=== PATIENT | male | born 1960 | race Hispanic/Latino ===

== ENCOUNTER 2018-11-23 19:47 | Inpatient (IN) | payer SELFPAY ==
[~2018-11-23] VITALS: Ht 165.1 cm; Wt 88.6 kg
[2018-11-23 20:28] LABS: BASOPHILS % (AUTO) 0.6 % (0.0-5.0); EOSINOPHILS % (AUTO) 0.3 % (0.0-8.0); HEMATOCRIT 38.7 % (42-54); LYMPHOCYTES % (AUTO) 11.8 % (21.0-51.0); MEAN CORPUSCULAR HEMOGLOBIN 30.4 pg (27.0-33.0); MEAN CORPUSCULAR HGB CONC 34.8 g/dL (32.0-36.0); MEAN CORPUSCULAR VOLUME 87.4 fL (79-99); NEUTROPHILS % (AUTO) 80.3 % (40.0-77.0); PLATELET COUNT (AUTO) 147 K/uL (130-400); RED BLOOD CELL COUNT(AUTO) 4.43 MIL/uL (4.50-6.20); RED CELL DISTRIBUTION WIDTH 13.3 % (11.0-15.5); WHITE BLOOD COUNT (AUTO) 8.5 K/uL (4.8-10.8)
[2018-11-23 20:39] LABS: CREATININE 1.3 mg/dL (0.5-1.5); POTASSIUM 4.5 mmol/L (3.5-5.1)
[2018-11-23 20:43] LABS: ALBUMIN 3.9 g/dL (3.5-5.0); BILIRUBIN,TOTAL 0.8 mg/dL (0.2-1.0); TOTAL PROTEIN, SERUM 8.1 g/dL (6.0-8.3)
[2018-11-23] MEDS ORDERED: BENZONATATE 100 MG CAPSULE PO ONE (21:09)
[2018-11-23] MEDS ORDERED: LIDOCAINE HCL 2% 20ML ONE (21:13)
[2018-11-23] MEDS ORDERED: LIDOCAINE 2%-EPI 1:200,000 20 ML VIAL IJ ONE (21:38)
[2018-11-23] MEDS ORDERED: LORAZEPAM 2 MG/ML 1 ML VIAL ONE (21:43)
[2018-11-23] MEDS ORDERED: ACETAMINOPHEN 325 MG TAB PO PRN (22:45)
[2018-11-23] MEDS ORDERED: MORPHINE SULFATE 2 MG/ML 1ML SYG IV PRN (22:45)
[2018-11-23] MEDS ORDERED: CHLORDIAZEPOXIDE HCL 25 MG CAP PO PRN ×2 (22:45)
[2018-11-23] MEDS ORDERED: LORAZEPAM 2 MG/ML 1 ML VIAL IVP PRN ×2 (22:45)
[2018-11-23] MEDS ORDERED: PHARMACY COMMUNICATION MISC PRN (22:45)
[2018-11-23] MEDS ORDERED: ONDANSETRON HCL 4 MG/2 ML VIAL IV PRN (22:45)
[2018-11-23] MEDS ORDERED: CLINDAMYCIN 600 MG/D5% WATER 50 ML IV ONE (23:07)
[2018-11-23] MEDS ORDERED: INSULIN HUMULIN R 100 UNIT/ML 3ML ONE (23:09)
[2018-11-24] MEDS ORDERED: GUAIFENESIN-CODEINE 5 ML SYRUP ONE (00:57)
[2018-11-24] MEDS ORDERED: GUAIFENESIN-CODEINE 5 ML SYRUP PO PRN (01:00)
[2018-11-24] MEDS: IPRATROPIUM/ALBUTEROL SULFATE 3 ML SOLUTION IH SCH ×6 (01:08→22:37)
[2018-11-24] MEDS ORDERED: THIAMINE HCL 100 MG/ML 2ML VIAL ONE (02:13)
[2018-11-24] MEDS ORDERED: M.V.I. IV [ADULT] 10 ML VIAL IV ONE (02:14)
[2018-11-24] MEDS ORDERED: FOLIC ACID 5 MG/ML 10 ML VIAL ONE (02:15)
[2018-11-24] MEDS ORDERED: SODIUM CHLORIDE 0.9% 1000ML 1,000 ML IV ONE (02:15)
[2018-11-24] MEDS ORDERED: ACETAMINOPHEN 325 MG TAB ONE (02:18)
[2018-11-24 03:22] VITALS: BP 127/80
[2018-11-24] MEDS ORDERED: CLINDAMYCIN 600 MG/D5% WATER 50 ML IV SCH (06:00)
[2018-11-24] MEDS: THIAMINE HCL 100 MG, FOLIC ACID 1 MG, M.V.I. IV [ADULT] 10 ML in SODIUM CHLORIDE 0.9% 1... IV SCH ×2 (06:00→21:19)
[2018-11-24] MEDS ORDERED: INSULIN HUMULIN R 100 UNIT/ML 3ML SQ SCH (07:30)
--- NOTE | 2018-11-24 07:32 | NUR ---
DR JAY ROUNDED ON PATIENT ORDERS FOR CBC, CMP, AMP AND LIP IN AM START PATIENT ON CLEAR LIQ
[2018-11-24 08:00] VITALS: BP 113/61
[2018-11-24] MEDS ORDERED: DOXYCYCLINE 100MG+NS 250ML 250 ML IV SCH (08:00)
[2018-11-24 08:27] LABS: HEMOGLOBIN A1C 11.6 % (4.0-6.0)
[2018-11-24 08:56] LABS: INR 1.07 (0.85-1.15); PARTIAL THROMBOPLASTIN TIME 31.6 SEC (26.3-35.5); PROTHROMBIN TIME 11.2 SEC (9.6-11.6)
[2018-11-24] MEDS ORDERED: VANCOMYCIN 1GM+NS 250ML 250 ML IV SCH (09:00)
[2018-11-24] MEDS ORDERED: VANCOMYCIN PROTOCOL PER PHARMACY IV PRN (09:00)
[2018-11-24] MEDS: ENOXAPARIN SODIUM 40 MG/0.4 ML SYRINGE SQ SCH (09:45)
[2018-11-24] MEDS: FAMOTIDINE/PF 20 MG/2 ML VIAL IV SCH ×2 (09:45→21:42)
[2018-11-24] MEDS: BENZONATATE 100 MG CAPSULE PO SCH ×3 (09:46→21:35)
[2018-11-24] MEDS: VANCOMYCIN 1GM+NS 250ML 250 ML IV SCH ×2 (10:00→21:42)
[2018-11-24] MEDS ORDERED: VANCOMYCIN 2 GM in SODIUM CHLORIDE 0.9% 500ML 500 ML IV ONE (10:00)
[2018-11-24 11:00] VITALS: BP 129/67
[2018-11-24] MEDS: INSULIN LISPRO 100 UNIT/ML 3ML SQ SCH ×5 (12:50→21:39)
[2018-11-24] MEDS: ZOSYN 3.375GM+NS 50ML 50 ML IV SCH ×2 (12:53→21:35)
--- NOTE | 2018-11-24 14:47 | NUR ---
SUBSTANCE ABUSE Sw met with pt's , pt was sleeping the entire visit. Per , pt has a long of substance abuse and states he recently fell off the wagon. states she believes it was related to stress of caring for his mother who has Alzheimer's disease. reports she is a pt at [facility] and she plans to take pt to [facility] for an evaluation for possible help. reports that pt's grandson witnessed pt high and was very emotional and upset by it. This had a big impact on pt to see how it affected his grandson and "swears" he is gonna quit for good. hopefule that this is case. Sw provided with resources for substance abuse to review and use as needed
[2018-11-24 16:00] VITALS: BP 130/56
--- NOTE | 2018-11-24 17:57 | NUR ---
cm note pt resides athome with spouse, independent with adls and self care. no dme. no services. dc plan is back to same home setting at time of dc. low income clinics info provided. [facility] to screen for possible assist. Addendum: 11/24/18 at 1759 by RHONA WOLFE CM Amended: Links added.
[2018-11-24 20:00] VITALS: BP 97/50
[2018-11-24] MEDS: INSULIN GLARGINE 100 UNITS/ML 10 ML VIAL SQ SCH (21:37)
[2018-11-25] VITALS: BP 140/64
[2018-11-25] MEDS: IPRATROPIUM/ALBUTEROL SULFATE 3 ML SOLUTION IH SCH ×2 (02:08→06:21)
[2018-11-25 04:00] VITALS: BP 112/56
[2018-11-25 04:29] LABS: BASOPHILS % (AUTO) 0.9 % (0.0-5.0); EOSINOPHILS % (AUTO) 1.9 % (0.0-8.0); HEMATOCRIT 34.1 % (42-54); LYMPHOCYTES % (AUTO) 26.4 % (21.0-51.0); MEAN CORPUSCULAR HEMOGLOBIN 30.5 pg (27.0-33.0); MEAN CORPUSCULAR VOLUME 87.1 fL (79-99); MONOCYTES % (AUTO) 10.1 % (3.0-13.0); NEUTROPHILS % (AUTO) 60.7 % (40.0-77.0); PLATELET COUNT (AUTO) 98 K/uL (130-400); RED BLOOD CELL COUNT(AUTO) 3.91 MIL/uL (4.50-6.20); WHITE BLOOD COUNT (AUTO) 3.8 K/uL (4.8-10.8)
[2018-11-25 04:30] LABS: HEMOGLOBIN A1C 11.6 % (4.0-6.0)
[2018-11-25 04:35] LABS: CREATININE 1.1 mg/dL (0.5-1.5); CRP QUANTITATIVE 17.3 mg/L (0.00-9.0); POTASSIUM 3.6 mmol/L (3.5-5.1)
[2018-11-25] MEDS: ZOSYN 3.375GM+NS 50ML 50 ML IV SCH ×3 (05:00→21:48)
[2018-11-25 05:51] LABS: ERYTHROCYTE SEDIMENTATION RATE 42 MM/HR (0-20)
[2018-11-25] MEDS: INSULIN LISPRO 100 UNIT/ML 3ML SQ SCH ×7 (07:49→21:50)
[2018-11-25 08:31] VITALS: BP 123/63
[2018-11-25] MEDS: ENOXAPARIN SODIUM 40 MG/0.4 ML SYRINGE SQ SCH (09:00)
[2018-11-25] MEDS ORDERED: IPRATROPIUM/ALBUTEROL SULFATE 3 ML SOLUTION IH PRN ×2 (09:30)
[2018-11-25] MEDS: BENZONATATE 100 MG CAPSULE PO SCH ×3 (10:54→21:48)
[2018-11-25] MEDS: FAMOTIDINE/PF 20 MG/2 ML VIAL IV SCH ×2 (10:54→21:49)
[2018-11-25] MEDS: VANCOMYCIN 1GM+NS 250ML 250 ML IV SCH ×2 (11:00→21:48)
[2018-11-25 11:53] VITALS: BP 118/71
[2018-11-25 13:22] LABS: AMPHET/METH SCREEN,URINE NEGATIVE (NEGATIVE); BARBITURATE SCREEN, URINE NEGATIVE (NEGATIVE); BENZODIAZEPINES SCREEN,URINE NEGATIVE (NEGATIVE); CANNABINOID SCREEN,URINE NEGATIVE (NEGATIVE); COCAINE SCREEN,URINE POSITIVE (NEGATIVE); OPIATE SCREEN,URINE NEGATIVE (NEGATIVE); PHENCYCLIDINE SCREEN,URINE NEGATIVE (NEGATIVE)
[2018-11-25] MEDS: THIAMINE HCL 100 MG, FOLIC ACID 1 MG, M.V.I. IV [ADULT] 10 ML in SODIUM CHLORIDE 0.9% 1... IV SCH (15:52)
[2018-11-25 15:54] VITALS: BP 117/67
[2018-11-25 20:00] VITALS: BP 151/76
[2018-11-25] MEDS: INSULIN GLARGINE 100 UNITS/ML 10 ML VIAL SQ SCH (21:54)
[2018-11-26] VITALS: BP 147/80
[2018-11-26 04:00] VITALS: BP 128/74
[2018-11-26 04:46] LABS: HEMATOCRIT 33.1 % (42-54); MEAN CORPUSCULAR HEMOGLOBIN 30.1 pg (27.0-33.0); MEAN CORPUSCULAR VOLUME 85.9 fL (79-99); PLATELET COUNT (AUTO) 116 K/uL (130-400); RED BLOOD CELL COUNT(AUTO) 3.85 MIL/uL (4.50-6.20); RED CELL DISTRIBUTION WIDTH 13.1 % (11.0-15.5); WHITE BLOOD COUNT (AUTO) 4.1 K/uL (4.8-10.8)
[2018-11-26 04:57] LABS: CREATININE 0.9 mg/dL (0.5-1.5); POTASSIUM 3.8 mmol/L (3.5-5.1)
[2018-11-26] MEDS: ZOSYN 3.375GM+NS 50ML 50 ML IV SCH ×2 (06:14→13:25)
[2018-11-26] MEDS: INSULIN LISPRO 100 UNIT/ML 3ML SQ SCH ×7 (06:17→20:48)
[2018-11-26 08:00] VITALS: BP 123/77
[2018-11-26] MEDS: ENOXAPARIN SODIUM 40 MG/0.4 ML SYRINGE SQ SCH (09:00)
[2018-11-26] MEDS: BENZONATATE 100 MG CAPSULE PO SCH ×3 (10:00→20:12)
[2018-11-26] MEDS: FAMOTIDINE/PF 20 MG/2 ML VIAL IV SCH ×2 (10:00→20:11)
--- NOTE | 2018-11-26 10:02 | NUR ---
LOVENOX HELD, PLT. COUNT BELOW 100. VANCO. NOT YET GIVEN, WAITING ON TROUGH RESULTS.
[2018-11-26] MEDS: THIAMINE HCL 100 MG, FOLIC ACID 1 MG, M.V.I. IV [ADULT] 10 ML in SODIUM CHLORIDE 0.9% 1... IV SCH (10:43)
[2018-11-26 11:00] VITALS: BP 120/69
--- NOTE | 2018-11-26 11:00 | NUR ---
NEW IV START, 20G RT. HAND.
[2018-11-26] MEDS ORDERED: COMPOUND IV REFRIGERATED 1 EACH IVSOLN MISC PRN (11:45)
[2018-11-26] MEDS ORDERED: VANCOMYCIN 1.5 GM in SODIUM CHLORIDE 0.9% 250 ML IV SCH (12:00)
--- NOTE | 2018-11-26 13:00 | NUR ---
DRESSING TO LT UPPER ARM CHANGED. WAS SQUEEZING ON ABSCESS , STATES WANTED TO SEE IF HE STILL HAD PUS. INST. TO LEAVE IT ALONE, ALREADY OPEN AND WILL DRAIN ON ITS OWN
[2018-11-26 16:00] VITALS: BP 122/76
[2018-11-26] MEDS: CEPHALEXIN 500 MG CAPSULE PO SCH ×2 (17:26→23:24)
[2018-11-26 20:00] VITALS: BP 124/63
[2018-11-26] MEDS: INSULIN GLARGINE 100 UNITS/ML 10 ML VIAL SQ SCH (20:49)
[2018-11-27] VITALS: BP 141/78
[2018-11-27 04:06] VITALS: BP 120/64
[2018-11-27 04:59] LABS: HEMATOCRIT 32.9 % (42-54); MEAN CORPUSCULAR HEMOGLOBIN 30.2 pg (27.0-33.0); MEAN CORPUSCULAR HGB CONC 34.4 g/dL (32.0-36.0); MEAN CORPUSCULAR VOLUME 87.6 fL (79-99); PLATELET COUNT (AUTO) 115 K/uL (130-400); RED BLOOD CELL COUNT(AUTO) 3.75 MIL/uL (4.50-6.20); RED CELL DISTRIBUTION WIDTH 13.3 % (11.0-15.5); WHITE BLOOD COUNT (AUTO) 3.9 K/uL (4.8-10.8)
[2018-11-27 05:09] LABS: POTASSIUM 3.9 mmol/L (3.5-5.1)
[2018-11-27] MEDS: INSULIN LISPRO 100 UNIT/ML 3ML SQ SCH ×6 (06:07→17:26)
[2018-11-27 08:00] VITALS: BP 131/77
[2018-11-27] MEDS: FAMOTIDINE/PF 20 MG/2 ML VIAL IV SCH (09:16)
[2018-11-27] MEDS: BENZONATATE 100 MG CAPSULE PO SCH ×2 (09:16→14:00)
[2018-11-27] MEDS: CEPHALEXIN 500 MG CAPSULE PO SCH ×2 (09:16→17:21)
[2018-11-27] MEDS: ENOXAPARIN SODIUM 40 MG/0.4 ML SYRINGE SQ SCH (09:18)
[2018-11-27 12:00] VITALS: BP 104/66
[2018-11-27 16:00] VITALS: BP 125/67
[2018-11-27] MEDS ORDERED: CEPH500C2 PO ×2 (18:08→18:12)
--- NOTE | 2018-11-27 18:45 | NUR ---
DISCHARGED NOW USING TEACH BACK. RX FOR ABX. GIVEN AND INST. TO FOLLOW UP WITH PCP IN 3 TO 5 DAYS. SPOUSE TO DO WOUND CARE AND WAS INST. , STATES WILL BE ABLE TO DO IT.
== END 2018-11-27 19:04 | disposition home or self-care (01) | DRG 603 ==
LOC: EDH 19:47 → EDHIP 19:48 → 4CH 11-24 02:36
PROVIDERS: ADMIT Internal Medicine; ATTEND Internal Medicine
PROC: 0H9GXZZ Drainage of Left Hand Skin, External Approach (ICD-10-PCS; principal; 2018-11-23)
DX: L02.414 Cutaneous abscess of left upper limb (principal); E87.1 Hypo-osmolality and hyponatremia; F14.20 Cocaine dependence, uncomplicated; F32.9 Major depressive disorder, single episode, unspecified; L03.114 Cellulitis of left upper limb; F41.9 Anxiety disorder, unspecified; E66.9 Obesity, unspecified; E11.9 Type 2 diabetes mellitus without complications; F10.10 Alcohol abuse, uncomplicated; F17.210 Nicotine dependence, cigarettes, uncomplicated; B95.61 Methicillin susceptible Staphylococcus aureus infection as the cause of diseases classified elsewhere; I10 Essential (primary) hypertension; Z68.32 Body mass index [BMI] 32.0-32.9, adult; Z71.6 Tobacco abuse counseling
CPT/HCPCS: 36415; 71045; 76882; 80048; 80053; 80202; 80305; 82550; 82948; 83036; 84484; 85025; 85027; 85610; 85651; 85730; 86140; 87070; 87076; 87077; 87186; 93005; 93306; 94640; 94664; A6266; G0378; G0480; J1650; J1815; J2060; J2543; J3370; J3411; J3490; J7030; J7040

== ENCOUNTER 2020-12-17 22:31 | Emergency (ER) | payer OTHER ==
[~2020-12-17 22:31] MED LIST: CEPH500C2 PO
== END 2020-12-17 22:32 | disposition left against medical advice (07) ==
LOC: EDH 22:31
DX: R11.10 Vomiting, unspecified (principal); Z53.21 Procedure and treatment not carried out due to patient leaving prior to being seen by health care provider

== ENCOUNTER 2022-07-12 01:59 | Emergency (ER) | payer OTHER ==
[~2022-07-12] VITALS: Ht 165.1 cm; Wt 81.6 kg
[2022-07-12 02:44] LABS: BASOPHILS % (AUTO) 0.5 % (0.0-5.0); EOSINOPHILS % (AUTO) 0.9 % (0.0-8.0); HEMATOCRIT 45.4 % (42-54); LYMPHOCYTES % (AUTO) 17.8 % (21.0-51.0); MEAN CORPUSCULAR HGB CONC 34.8 g/dL (32.0-36.0); MONOCYTES % (AUTO) 6.5 % (3.0-13.0); NEUTROPHILS % (AUTO) 74.1 % (40.0-77.0); PLATELET COUNT (AUTO) 136 K/uL (130-400); RED CELL DISTRIBUTION WIDTH 11.5 % (11.0-15.5); WHITE BLOOD COUNT (AUTO) 9.5 K/uL (4.8-10.8)
[2022-07-12 02:56] LABS: CARBON DIOXIDE 31 mmol/L (21-32); CHLORIDE 101 mmol/L (101-111); CREATININE 1.3 mg/dL (0.5-1.5); GLOMERULAR FILTR. RATE CALC 60 mL/min (>60); GLUCOSE,RANDOM 239 mg/dL (70-105); POTASSIUM 5.6 mmol/L (3.5-5.1); SODIUM SERUM 140 mmol/L (136-145); UREA NITROGEN, BLOOD 23 mg/dL (7-18)
[2022-07-12 03:00] LABS: ALANINE AMINOTRANSFERASE 31 U/L (12-78); ALBUMIN 3.9 g/dL (3.5-5.0); ASPARTATE AMINOTRANSFERASE 24 U/L (10-37); TOTAL PROTEIN, SERUM 7.6 g/dL (6.0-8.3)
[2022-07-12 03:01] LABS: ACETAMINOPHEN < 1 mcg/mL (10-29); ALCOHOL, BLOOD < 3 mg/dL (0-10); SALICYLATE < 2.8 mg/dL (2.8-20.0)
[2022-07-12 03:12] LABS: APPEARANCE,URINE CLEAR (CLEAR); BILIRUBIN,URINE NEGATIVE (NEGATIVE); COLOR,URINE LIGHT-YELLOW (YELLOW); GLUCOSE, URINE (UA) 150 mg/dL (NEGATIVE); KETONES,URINE 5 mg/dL (NEGATIVE); LEUKOCYTE ESTERASE ,URINE NEGATIVE Leu/uL (NEGATIVE); NITRATE,URINE NEGATIVE (NEGATIVE); OCCULT BLOOD,URINE NEGATIVE (NEGATIVE); PROTEIN,URINE 100 mg/dL (NEGATIVE); UROBILINOGEN,URINE 0.2 mg/dL (0.2-1.0)
[2022-07-12 03:19] LABS: AMPHET/METH SCREEN,URINE NEGATIVE (NEGATIVE); BARBITURATE SCREEN, URINE NEGATIVE (NEGATIVE); BENZODIAZEPINES SCREEN,URINE NEGATIVE (NEGATIVE); CANNABINOID SCREEN,URINE NEGATIVE (NEGATIVE); COCAINE SCREEN,URINE POSITIVE (NEGATIVE); OPIATE SCREEN,URINE NEGATIVE (NEGATIVE); PHENCYCLIDINE SCREEN,URINE NEGATIVE (NEGATIVE)
[2022-07-12 03:32] LABS: MUCUS,URINE RARE LPF (None Seen); RBC,URINE 0-1 /HPF (0-1); WBC,URINE 0-1 /HPF (0-1)
[2022-07-12] MEDS ORDERED: HYDROCODONE/ACETAMINOPHEN 5/325 MG TAB PO ONE (05:30)
[2022-07-12 16:03] VITALS: BP 147/88
== END 2022-07-12 16:05 | disposition home or self-care (01) ==
LOC: EDH 01:59
DX: S00.83XA Contusion of other part of head, initial encounter (principal); S30.811A Abrasion of abdominal wall, initial encounter; S50.02XA Contusion of left elbow, initial encounter; R45.851 Suicidal ideations; E11.9 Type 2 diabetes mellitus without complications; W01.0XXA Fall on same level from slipping, tripping and stumbling without subsequent striking against object, initial encounter; Y93.89 Activity, other specified; Y92.89 Other specified places as the place of occurrence of the external cause; Y99.8 Other external cause status
CPT/HCPCS: 99285; 71250; 80053; 80305; 85025; 36415; 81001; G0481

== ENCOUNTER → 2023-12-26 | Outpatient (CLI) | payer MEDICARE | END | disposition home or self-care (01) | LOC: RAH 11:17 | PROVIDERS: ATTEND Internal Medicine Cardiovascular Disease | DX: R06.00 Dyspnea, unspecified (principal); M47.815 Spondylosis without myelopathy or radiculopathy, thoracolumbar region | CPT/HCPCS: 71046 ==

== ENCOUNTER → 2024-03-16 | Outpatient (CLI) | payer MEDICARE ==
[2024-03-16 16:33] LABS: CREATININE 1.1 mg/dL (0.5-1.3); POTASSIUM 4.4 mmol/L (3.5-5.1)
== END | disposition home or self-care (01) ==
LOC: LAB 13:49
PROVIDERS: ATTEND Internal Medicine Cardiovascular Disease
DX: I50.22 Chronic systolic (congestive) heart failure (principal); R42 Dizziness and giddiness; E83.42 Hypomagnesemia
CPT/HCPCS: 36415; 80048

== ENCOUNTER → 2024-05-25 | Outpatient (CLI) | payer MEDICARE ==
[2024-05-25 16:45] LABS: CREATININE 0.9 mg/dL (0.5-1.3); MAGNESIUM 1.5 mg/dL (1.80-2.40); POTASSIUM 4.6 mmol/L (3.5-5.1)
== END | disposition home or self-care (01) ==
LOC: LAB 14:47
PROVIDERS: ATTEND Internal Medicine Cardiovascular Disease
DX: I50.22 Chronic systolic (congestive) heart failure (principal); E83.42 Hypomagnesemia
CPT/HCPCS: 36415; 80048; 83735; 83880